=== PATIENT | born 1980 | race Caucasian/White ===

== ENCOUNTER 2019-08-09 14:23 | Inpatient (IN) | payer MEDICAID ==
[~2019-08-09] VITALS: Ht 167.6 cm; Wt 61.0 kg
[2019-08-09 15:40] VITALS: BP 90/69
[2019-08-09] MEDS ORDERED: ZOLPIDEM TARTRATE 10 MG TABLET PO PRN (16:45)
[2019-08-09 17:25] VITALS: BP 111/76
[2019-08-09] MEDS ORDERED: BUSP15 PO (17:42)
[2019-08-09] MEDS ORDERED: ASCO500C18 PO (17:42)
[2019-08-09] MEDS ORDERED: ACET250T27 PO (17:42)
[2019-08-09] MEDS ORDERED: CELE200 PO (17:42)
[2019-08-09] MEDS ORDERED: OXYB5XL PO (17:42)
[2019-08-09] MEDS ORDERED: LEVO75 PO (17:42)
[2019-08-09] MEDS ORDERED: CYCL5.5D3 OU (17:42)
[2019-08-09] MEDS ORDERED: GABA-1181 PO ×2 (17:42)
[2019-08-09] MEDS ORDERED: CYCL10 PO (17:42)
[2019-08-09] MEDS ORDERED: ESCI-8 PO (17:42)
[2019-08-09] MEDS ORDERED: ACET-66 PO (17:42)
[2019-08-09] MEDS ORDERED: RIFA300 PO (17:42)
[2019-08-09] MEDS: LORazepam 1 MG TABLET PO PRN (20:32)
[2019-08-09] MEDS: BACITRACIN 28.4 GM OINTMENT TP SCH (20:32)
[2019-08-09] MEDS: GABAPENTIN 300 MG CAPSULE PO SCH (20:59)
[2019-08-09] MEDS: ACETAMINOPHEN 500 MG TABLET PO PRN (21:00)
[2019-08-09] MEDS: AcetaZOLAMIDE 250 MG TABLET PO SCH (21:32)
[2019-08-10] MEDS ORDERED: AcetaZOLAMIDE 250 MG TABLET PO SCH
[2019-08-10] MEDS: AcetaZOLAMIDE 250 MG TABLET PO SCH ×6 (00:01→23:53)
[2019-08-10 01:16] VITALS: BP 101/76
[2019-08-10] MEDS: ACETAMINOPHEN 500 MG TABLET PO PRN (05:31)
[2019-08-10] MEDS: LEVOTHYROXINE SODIUM 75 MCG TABLET PO SCH (06:04)
[2019-08-10] MEDS: NAPROXEN 500 MG TABLET PO SCH ×2 (07:12→16:47)
[2019-08-10 07:17] LABS: BASOPHILS % (AUTO) 1.1 % (0.0-2.0); EOSINOPHILS % (AUTO) 3.7 % (1.0-6.0); HEMATOCRIT 30.9 % (41-53); HEMOGLOBIN 10.7 g/dL (13.5-17.5); LYMPHOCYTES # (AUTO) 1.7 K/uL (2.0-11.5); LYMPHOCYTES % (AUTO) 56.6 % (21.0-34.0); MEAN CORPUSCULAR HEMOGLOBIN 31.6 pg (31.0-37.0); MEAN CORPUSCULAR HGB CONC 34.7 G/dL (29.0-37.0); MEAN CORPUSCULAR VOLUME 91 fL (95-121); MONOCYTES # (AUTO) 0.2 K/uL (0.1-1.0); MONOCYTES % (AUTO) 7.8 % (2.0-9.0); NEUTROPHILS # (AUTO) 0.9 K/uL (5.0-21.0); NEUTROPHILS % (AUTO) 30.8 % (53.0-62.0); PLATELET COUNT (AUTO) 148 K/uL (150-450); RED CELL DISTRIBUTION WIDTH 12.5 % (11.5-14.5)
[2019-08-10 07:46] LABS: ALANINE AMINOTRANSFERASE 16 U/L (12-78); ALBUMIN 3.1 g/dL (3.4-5.0); ALKALINE PHOSPHATASE 48 U/L (46-116); ANION GAP 10 mmol/L (8-16); ASPARTATE AMINOTRANSFERASE 14 U/L (15-37); BILIRUBIN,TOTAL 0.3 mg/dL (0.1-1.0); CALCIUM, TOTAL 7.9 mg/dL (8.8-10.5); CARBON DIOXIDE 21 mmol/L (22-29); CHLORIDE 110 mmol/L (98-107); CHOL/HDL RATIO 2.9 (4.2-7.3); CHOLESTEROL 127 mg/dL (131-200); CREATININE 0.59 mg/dL (0.60-1.30); FREE T4 (FREE THYROXINE) 0.77 ng/dL (0.76-1.46); GLOMERULAR FILTR. RATE CALC > 60 mL/min; GLUCOSE,RANDOM 85 mg/dL (70-110); HCG,QUANTITATIVE < 1 mIU/mL (0-6); HDL CHOLESTEROL 44 mg/dL (40-60); LDL CHOL (CALC.) 70 mg/dL (0-130); POTASSIUM 3.5 mmol/L (3.5-5.1); SODIUM SERUM 141 mmol/L (136-145); THYROID STIMULATING HORMONE 1.88 uIU/mL (0.36-3.74); TOTAL PROTEIN, SERUM 5.4 g/dL (6.4-8.2); TRIGLYCERIDES 63 mg/dL (15-150); UREA NITROGEN, BLOOD 4 mg/dL (7-18)
[2019-08-10] MEDS ORDERED: ONDANSETRON HCL 4 MG TABLET PO PRN (08:30)
[2019-08-10] MEDS ORDERED: DOCUSATE SODIUM 100 MG CAPSULE PO PRN (08:30)
[2019-08-10] MEDS ORDERED: CloNIDine HCL 0.1 MG TABLET PO PRN (08:30)
[2019-08-10] MEDS ORDERED: GuaiFENesin/D-METHORPHAN [SUGAR-FREE] 200-20MG/10 ML SYRUP UDCUP PO PRN (08:30)
[2019-08-10] MEDS ORDERED: NICOTINE 14 MG/24 HOUR PATCH TD PRN (08:30)
[2019-08-10] MEDS ORDERED: LOPERAMIDE HCL 2 MG CAPSULE PO PRN (08:30)
[2019-08-10] MEDS ORDERED: ALBUTEROL SULFATE HFA 90 MCG/PUFF 8 GM INHALER IH PRN (08:30)
[2019-08-10] MEDS ORDERED: PETROLATUM,WHITE 28 GM JELLY TP PRN (08:30)
[2019-08-10] MEDS ORDERED: MAG HYDROX/AL HYDROX/SIMETH ES 30 ML SUSPENSION UDCUP PO PRN (08:30)
[2019-08-10] MEDS ORDERED: IBUPROFEN 400 MG TABLET PO PRN (08:30)
[2019-08-10] MEDS ORDERED: MAGNESIUM HYDROXIDE SUSPENSION 30 ML UDCUP PO PRN (08:30)
[2019-08-10] MEDS ORDERED: ASCORBIC ACID 500 MG TABLET PO SCH ×2 (09:00→13:00)
[2019-08-10] MEDS ORDERED: RIFAMPIN 300 MG CAPSULE PO SCH ×2 (09:00→21:00)
[2019-08-10] MEDS ORDERED: CYANOCOBALAMIN 500 MCG TABLET PO SCH ×2 (09:00→13:00)
[2019-08-10] MEDS ORDERED: CELECOXIB 200 MG CAPSULE PO SCH (09:00)
[2019-08-10] MEDS ORDERED: GABAPENTIN 300 MG CAPSULE PO SCH (09:00)
[2019-08-10] MEDS: BACITRACIN 28.4 GM OINTMENT TP SCH ×2 (09:23→17:00)
[2019-08-10] MEDS: OXYBUTYNIN CHLORIDE 5 MG ER TABLET PO SCH ×2 (09:24→16:45)
[2019-08-10] MEDS: GABAPENTIN 300 MG CAPSULE PO SCH ×3 (09:25→17:00)
[2019-08-10] MEDS: CycloSPORINE 0.05% 0.4 ML OPHTHALMIC EMULSION OU SCH ×2 (09:25→17:00)
[2019-08-10] MEDS: LORazepam 1 MG TABLET PO PRN ×2 (09:44→20:51)
[2019-08-10] MEDS: RIFAMPIN 300 MG CAPSULE PO SCH (14:21)
[2019-08-10] MEDS: BusPIRone HCL 15 MG TABLET PO SCH (16:47)
[2019-08-10 17:29] VITALS: BP 101/70
[2019-08-10] MEDS: ACETAMINOPHEN 325 MG TABLET PO PRN (17:29)
[2019-08-10] MEDS: CYANOCOBALAMIN 500 MCG TABLET PO SCH (20:23)
[2019-08-10 20:24] VITALS: BP 103/69
[2019-08-10] MEDS: ASCORBIC ACID 500 MG TABLET PO SCH (20:24)
[2019-08-11 02:56] VITALS: BP 100/73
[2019-08-11] MEDS: LEVOTHYROXINE SODIUM 75 MCG TABLET PO SCH (06:02)
[2019-08-11] MEDS: AcetaZOLAMIDE 250 MG TABLET PO SCH ×4 (06:53→23:38)
[2019-08-11] MEDS: ESCITALOPRAM OXALATE 20 MG TABLET PO SCH (08:09)
[2019-08-11] MEDS: CycloSPORINE 0.05% 0.4 ML OPHTHALMIC EMULSION OU SCH ×2 (08:09→16:39)
[2019-08-11] MEDS: BusPIRone HCL 15 MG TABLET PO SCH ×2 (08:09→16:38)
[2019-08-11] MEDS: ACETAMINOPHEN 325 MG TABLET PO PRN ×2 (08:10→16:38)
[2019-08-11] MEDS: GABAPENTIN 300 MG CAPSULE PO SCH ×3 (08:10→16:38)
[2019-08-11] MEDS: OXYBUTYNIN CHLORIDE 5 MG ER TABLET PO SCH ×2 (08:10→16:38)
[2019-08-11] MEDS: BACITRACIN 28.4 GM OINTMENT TP SCH ×2 (08:20→16:42)
[2019-08-11 08:44] VITALS: BP 91/60
[2019-08-11] MEDS ORDERED: CELECOXIB 200 MG CAPSULE PO SCH (09:00)
[2019-08-11] MEDS: RIFAMPIN 300 MG CAPSULE PO SCH (12:04)
[2019-08-11 16:19] VITALS: BP 95/60
[2019-08-11 16:38] VITALS: BP 95/60
[2019-08-11] MEDS: ASCORBIC ACID 500 MG TABLET PO SCH (20:31)
[2019-08-11] MEDS: CYANOCOBALAMIN 500 MCG TABLET PO SCH (20:31)
[2019-08-11] MEDS: LORazepam 1 MG TABLET PO PRN (20:35)
[2019-08-12] MEDS: ACETAMINOPHEN 325 MG TABLET PO PRN (04:31)
[2019-08-12] MEDS: LORazepam 1 MG TABLET PO PRN (04:31)
[2019-08-12] MEDS: LEVOTHYROXINE SODIUM 75 MCG TABLET PO SCH (06:17)
[2019-08-12] MEDS: AcetaZOLAMIDE 250 MG TABLET PO SCH ×2 (06:39→13:55)
[2019-08-12] MEDS ORDERED: CELECOXIB 200 MG CAPSULE PO SCH (07:00)
[2019-08-12 08:17] VITALS: BP 108/65
[2019-08-12] MEDS: ESCITALOPRAM OXALATE 20 MG TABLET PO SCH (08:55)
[2019-08-12] MEDS: GABAPENTIN 300 MG CAPSULE PO SCH ×2 (08:56→13:55)
[2019-08-12] MEDS: BusPIRone HCL 15 MG TABLET PO SCH (08:56)
[2019-08-12] MEDS: OXYBUTYNIN CHLORIDE 5 MG ER TABLET PO SCH (09:00)
[2019-08-12] MEDS: CycloSPORINE 0.05% 0.4 ML OPHTHALMIC EMULSION OU SCH (09:53)
[2019-08-12] MEDS: BACITRACIN 28.4 GM OINTMENT TP SCH (10:48)
[2019-08-12] MEDS: RIFAMPIN 300 MG CAPSULE PO SCH (12:36)
[2019-08-12] MEDS ORDERED: ESCI20TA87 PO (13:14)
[2019-08-12] MEDS ORDERED: CYCL05OE OU (13:16)
== END 2019-08-12 15:00 | disposition home or self-care (01) | DRG 754 ==
LOC: EDSEX 16:57 → B3A 16:57
PROVIDERS: ADMIT Psychiatry & Neurology Child & Adolescent Psychiatry; ATTEND Psychiatry & Neurology Child & Adolescent Psychiatry
DX: F32.9 Major depressive disorder, single episode, unspecified (principal); D69.6 Thrombocytopenia, unspecified; K72.90 Hepatic failure, unspecified without coma; G62.9 Polyneuropathy, unspecified; F10.10 Alcohol abuse, uncomplicated; R32 Unspecified urinary incontinence; E03.9 Hypothyroidism, unspecified; D64.9 Anemia, unspecified; D72.819 Decreased white blood cell count, unspecified
CPT/HCPCS: 84439; 84443